=== PATIENT | female | born 1930 | race Caucasian/White ===

== ENCOUNTER 2018-11-27 17:40 | Emergency (ER) | payer MEDICARE, BC ==
[~2018-11-27] VITALS: Wt 60.0 kg
[2018-11-27] MEDS ORDERED: AMAN100C96 PO (18:25)
[2018-11-27] MEDS ORDERED: EZET10TA31 PO (18:26)
[2018-11-27] MEDS ORDERED: AMLO5TAB4 PO (18:26)
[2018-11-27] MEDS ORDERED: PITA1TAB PO (18:27)
[2018-11-27] MEDS ORDERED: MIRT15TA5 PO (18:27)
[2018-11-27] MEDS ORDERED: LEVO75TA5 PO (18:27)
[2018-11-27] MEDS ORDERED: MIRA50TA PO (18:28)
[2018-11-27] MEDS ORDERED: POLY17PO3 PO (18:28)
[2018-11-27] MEDS ORDERED: CHOL100062 PO (18:29)
[2018-11-27] MEDS ORDERED: RISP0.5T3 PO (18:29)
[2018-11-27] MEDS ORDERED: ACET-141 PO (18:30)
[2018-11-27] MEDS ORDERED: DIVA125C2 PO (18:31)
[2018-11-27] MEDS ORDERED: LISI-471 PO (18:31)
[2018-11-27] MEDS ORDERED: DIVA125T31 PO (18:31)
[2018-11-27] MEDS ORDERED: CARB1TAB46 PO (18:32)
[2018-11-27] MEDS ORDERED: [UNRECOGNIZED DRUG - CODE] PO (18:33)
[2018-11-27] MEDS ORDERED: SOD CHLORIDE 0.9% 1,000 ML IV ONE (21:30)
--- NOTE | 2018-11-27 21:48 | ERD ---
ER Documentation Chief Complaint Chief Complaint CONSTIPATION X 4 DAYS HPI Is an 88-year-old female with a prior history of parkinsonian dementia who presents for evaluation of constipation for 4 days. History was given by the patient as well as her family members. She resides in assisted living facility, has a history of chronic constipation, however they brought her over in order to ensure that she did not have an infection or obstruction. Patient denies chest pain or shortness of breath, she has not had any fever. ROS All systems reviewed and are negative except as per history of present illness. Medications Home Meds Reported Medications Bismuth Subsalicylate ([place] Bismuth) 262 Mg Tab.chew, 262 MG PO Q4H PRN for NEEDED, TAB.CHEW 11/27/18 Carbidopa/Levodopa (CARBIDOPA-LEVO 25-100 MG ODT) 1 Each Tab.rapdis, 1 TAB PO TID, #90 TAB 11/27/18 Lisinopril* (Lisinopril*) 20 Mg Tablet, 20 MG PO BID, #30 TAB 11/27/18 Divalproex Sodium* (Divalproex Sodium*) 125 Mg Tablet.dr, 125 MG PO BID, #120 TAB 11/27/18 Divalproex Sodium* (Divalproex Sodium*) 125 Mg Cap.sprink, 125 MG PO QID, #120 CAP 11/27/18 Acetaminophen* (Acetaminophen*) 500 MG Extra Strength Tablet, 500 MG PO BID PRN for PAIN AND OR ELEVATED TEMP, TAB 11/27/18 Cholecalciferol* (Vitamin D3*) 1,000 Unit Tablet, 1000 UNIT PO DAILY, TAB 11/27/18 Risperidone* (Risperidone*) 0.5 Mg Tablet, 0.5 MG PO QHS, TAB 11/27/18 Polyethylene Glycol* (Polyethylene Glycol*) 17 Gm Powd.pack, 8.5 GM PO DAILY, #30 PACKET 11/27/18 Mirabegron (Myrbetriq) 50 Mg Tab.er.24h, 50 MG PO DAILY, TAB 11/27/18 Mirtazapine* (Mirtazapine*) 15 Mg Tablet, 15 MG PO HS, TAB 11/27/18 Pitavastatin Calcium (Livalo) 1 Mg Tablet, 1 MG PO DAILY, TAB 11/27/18 Levothyroxine Sodium* (Levothyroxine Sodium*) 75 Mcg Tablet, 75 MCG PO BEFORE BREAKFAST, #30 TAB 11/27/18 Ezetimibe* (Zetia*) 10 Mg Tablet, 10 MG PO DAILY, TAB 11/27/18 Amlodipine Besylate* (Norvasc*) 5 Mg Tablet, 5 MG PO DAILY, TAB 11/27/18 Amantadine Hcl* (Amantadine Hcl*) 100 Mg Capsule, 100 MG PO QHS, #60 CAP 11/27/18 Allergies Allergies: Coded Allergies: No Known Allergy (Unverified , 11/27/18) PMhx/Soc Hx Cardiac Disorders: Yes (CHF, HTN) Hx Alcohol Use: No Hx Substance Use: No Hx Tobacco Use: No Smoking Status: Never smoker Physical Exam Vitals Vital Signs Date Temp Pulse Resp B/P (MAP) Pulse Ox O2 O2 Flow FiO2 Time Delivery Rate 11/28/18 98.5 92 21 111/69 95 Room Air 00:09 (83) 11/27/18 77 13 133/69 95 Room Air 23:11 (90) 11/27/18 76 14 141/58 95 Room Air 20:31 (85) 11/27/18 96.8 86 22 96/57 (70) 98 Room Air 18:43 11/27/18 97.1 88 18 101/61 99 17:52 (74) Physical Exam Const: Afebrile, nontoxic, no acute distress Head: Atraumatic Eyes: Normal Conjunctiva ENT: Normal External Ears, Nose and Mouth. Neck: Full range of motion. No meningismus. Resp: Clear to auscultation bilaterally Cardio: Regular rate and rhythm, no murmurs Abd: Soft, non tender, non distended. Normal bowel sounds Skin: No petechiae or rashes Back: No midline or flank tenderness Ext: No cyanosis, or edema Neur: Awake and alert Psych: Normal Mood and Affect Result Diagram: 11/27/18 1825 11/27/182112 Results 24 hrs Laboratory Tests Test 11/27/18 18:25 11/27/18 21:05 11/27/18 21:13 White Blood Count 22.2 10^3/ul Red Blood Count 4.70 10^6/ul Hemoglobin 15.1 g/dl Hematocrit 47.4 % Mean Corpuscular Volume 100.9 fl Mean Corpuscular Hemoglobin 32.1 pg Mean Corpuscular 31.9 g/dl Hemoglobin Concent Red Cell Distribution Width 13.1 % Platelet Count 220 10^3/UL Mean Platelet Volume 10.2 fl Immature Granulocytes % 1.100 % Neutrophils % 87.1 % Lymphocytes % 4.7 % Monocytes % 6.6 % Eosinophils % 0.3 % Basophils % 0.2 % Nucleated Red Blood Cells % 0.0 /100WBC Immature Granulocytes # 0.240 10^3/ul Neutrophils # 19.3 10^3/ul Lymphocytes # 1.0 10^3/ul Monocytes # 1.5 10^3/ul Eosinophils # 0.1 10^3/ul Basophils # 0.0 10^3/ul Nucleated Red Blood Cells # 0.0 10^3/ul Sodium Level 138 mmol/L 139 mmol/L Potassium Level 6.2 mmol/L 5.4 mmol/L Chloride Level 99 mmol/L 99 mmol/L Carbon Dioxide Level 24 mmol/L 28 mmol/L Anion Gap 15 12 Blood Urea Nitrogen 32 mg/dl 35 mg/dl Creatinine 1.82 mg/dl 1.62 mg/dl Est Glomerular Filtrat mL/min mL/min Rate mL/min Glucose Level 242 mg/dl 127 mg/dl Calcium Level 10.1 mg/dl 9.7 mg/dl Total Bilirubin 0.2 mg/dl Direct Bilirubin 0.00 mg/dl Indirect Bilirubin 0.2 mg/dl Aspartate Amino Transf (AST/SGOT) 22 IU/L Alanine < 6 IU/L Aminotransferase (ALT/SGPT) Alkaline Phosphatase 118 IU/L Troponin I < 0.012 ng/ml Total Protein 8.3 g/dl Albumin 4.7 g/dl Globulin 3.60 g/dl Albumin/Globulin Ratio 1.30 Lipase 79 U/L Urine Color YELLOW Urine Clarity CLOUDY Urine pH 5.0 Urine Specific Hazel 1.024 Urine Ketones TRACE mg/dL Urine Nitrite NEGATIVE mg/dL Urine Bilirubin NEGATIVE mg/dL Urine Urobilinogen 1+ mg/dL Urine Leukocyte Esterase NEGATIVE Randal/ul Urine Microscopic RBC 5 /HPF Urine Microscopic WBC 2 /HPF Urine Squamous Epithelial Cells FEW /HPF Urine Mucus MODERATE /HPF Urine Hemoglobin 1+ mg/dL Urine Glucose NEGATIVE mg/dL Urine Total Protein 1+ mg/dl Current Medications Medications Dose Sig/Leyla Start Time Status Last (Trade) Ordered Route PRN Stop Time Admin Dose Reason Admin Sodium 1,000 ml @ Q1H ONCE 11/27/18 DC 11/27/18 Chloride 1,000 mls/hr IV 21:30 11/27/18 21:39 22:29 Procedures/MDM This is a 88-year-old female presents for evaluation of constipation. Patient has been having normal flatus, she is afebrile and nontoxic-appearing. I did note a significant leukocytosis of 22.2. Given these findings, I recommended the patient be evaluated for infection, although she has not had a fever. Urinalysis was negative for signs of infection and CT abdomen pelvis showed only constipation. She did appear clinically dehydrated, and had a potassium ini tially of 6.2. The patient was hydrated, and her repeat potassium was 5.4. I discussed the leukocytosis with the family, and given she has no other signs of infections at this point I suspect is most likely reactive, family would prefer that the patient be discharged back to the assisted living facility if possible, and the patient also wishes to be discharged, I think at this point this is a re asonable option given that she has not shown any signs of worsening infection or deterioration, strict return precautions given for fever, worsening abdominal pain or any worsening symptoms. EKG: Rate/Rhythm: Normal Sinus Rhythm QRS, ST, T-waves: Left ventricular hypertrophy no changes consistent w/ acute ischemia Impression: No evidence of ischemia or arrhythmia Departure Diagnosis: Primary Impression: Constipation Constipation type: unspecified constipation type Qualified Codes: K59.00 - Constipation, unspecified Additional Impression: Leukocytosis Leukocytosis type: unspecified Qualified Codes: D72.829 - Elevated white blood cell count, unspecified Condition: Stable Patient Instructions: Constipation (Adult) Additional Instructions: Call your primary care doctor TOMORROW for an appointment during the next 2-3 days.See the doctor sooner or return here if your condition worsens before your appointment time. MELITON HOWARD MD Nov 27, 2018 21:48
[2018-11-28 00:09] VITALS: BP 111/69; PULSE 92; RESP 21
== END 2018-11-28 00:32 | disposition home or self-care (01) ==
LOC: E/R 17:40
DX: K59.00 Constipation, unspecified (principal); R40.2252 Coma scale, best verbal response, oriented, at arrival to emergency department; D72.829 Elevated white blood cell count, unspecified; R40.2362 Coma scale, best motor response, obeys commands, at arrival to emergency department; R40.2142 Coma scale, eyes open, spontaneous, at arrival to emergency department; I11.0 Hypertensive heart disease with heart failure; I50.9 Heart failure, unspecified; R10.9 Unspecified abdominal pain
CPT/HCPCS: 71045; 74018; 74176; 80048; 80053; 81001; 83690; 84484; 85025; 87086; J7030; 93005

== ENCOUNTER 2019-09-23 09:03 | Emergency (ER) | payer MEDICARE, BC ==
[~2019-09-23] VITALS: Ht 157.5 cm; Wt 68.0 kg
[~2019-09-23 09:03] MED LIST: ACET-141 PO; AMAN100C96 PO; AMLO5TAB4 PO; CA CHLORIDE 10% 10 ML SYRINGE ONE; CARB1TAB46 PO; CHOL100062 PO; DIVA125C2 PO; DIVA125T31 PO; EPINEPHrine 0.1 MG/ML SYG ONE; ETOMIDATE 20 MG INJ ONE; EZET10TA19 PO; LEVO75TA5 PO; LISI-471 PO; MIRA50TA PO; MIRT15TA5 PO; NA BICARBONATE 8.4% 50 ML SYG ONE; PITA1TAB PO; POLY17PO28 PO; RISP0.5T3 PO; ROCURONIUM 50 MG INJ ONE; [UNRECOGNIZED DRUG - CODE] PO
[2019-09-23 09:05] VITALS: BP 160/104; PULSE 122; Ht 157.5 cm; Wt 68.0 kg
[2019-09-23 09:45] VITALS: RESP 16
[2019-09-23] MEDS ORDERED: EPINEPHrine 4 MG in SOD CHLORIDE 0.9% 246 ML IV SCH (10:00)
== END 2019-09-23 14:00 | disposition expired ==
LOC: EDBD 09:03 → MERGE 09:03 → E/R 09:03
DX: I46.9 Cardiac arrest, cause unspecified (principal); I10 Essential (primary) hypertension; G20 Parkinson's disease; E03.9 Hypothyroidism, unspecified; R40.2112 Coma scale, eyes open, never, at arrival to emergency department; R40.2312 Coma scale, best motor response, none, at arrival to emergency department; R40.2212 Coma scale, best verbal response, none, at arrival to emergency department
CPT/HCPCS: 31500; 36556; 76937; 82962; 92950; 93005; 94002; 99285; J0171; J7050